=== PATIENT | male | born 1990 | race Caucasian/White ===

== ENCOUNTER 2019-08-11 19:02 | Emergency (ER) | payer OTHER ==
[~2019-08-11] VITALS: Ht 180.3 cm; Wt 72.6 kg
== END 2019-08-11 20:34 | disposition home or self-care (01) ==
LOC: ER 19:02
DX: S01.82XA Laceration with foreign body of other part of head, initial encounter (principal); W45.8XXA Other foreign body or object entering through skin, initial encounter; Y93.89 Activity, other specified; Y92.69 Other specified industrial and construction area as the place of occurrence of the external cause; Y99.8 Other external cause status

== ENCOUNTER 2019-08-19 08:20 | Emergency (ER) | payer OTHER ==
[~2019-08-19] VITALS: Ht 180.3 cm; Wt 74.8 kg
== END 2019-08-19 09:35 | disposition home or self-care (01) ==
LOC: ER 08:20
DX: Z48.02 Encounter for removal of sutures (principal)